=== PATIENT | female | born 1945 | race Caucasian/White ===

== ENCOUNTER → 2020-10-29 | Outpatient (CLI) | payer MEDICARE, BC ==
[2020-10-29 11:19] LABS: HEMOGLOBIN 12.9 gm/dl (12.3-15.3); RED BLOOD COUNT 4.26 M/UL (4.00-5.10); WHITE BLOOD COUNT 7.6 K/UL (4.5-11.0)
[2020-10-29 11:37] LABS: BUN/CREATININE RATIO 20 (0-10)
== END ==
LOC: EDSTATUS 09:30 → OPSV2 09:30
PROVIDERS: Orthopaedic Surgery
DX: Z01.818 Encounter for other preprocedural examination (principal); M17.11 Unilateral primary osteoarthritis, right knee; I45.10 Unspecified right bundle-branch block; I49.8 Other specified cardiac arrhythmias
CPT/HCPCS: 36415; 80048; 81001; 85025; 87081; 87086; 93005

== ENCOUNTER → 2021-11-26 | Outpatient (CLI) | payer MEDICARE, BC ==
[~2021-11-26] MED LIST: CYCLOBENZAPRINE10 MG PO; HYDROCHLOROTHIA25 MG PO; MELATONIN PO; NORVASC5 MG PO; TRIAMTERENE50 MG PO
[2021-11-26 12:40] LABS: HEMOGLOBIN 13.2 gm/dl (12.3-15.3); RED BLOOD COUNT 4.34 M/UL (4.00-5.10); WHITE BLOOD COUNT 6.9 K/UL (4.5-11.0)
== END ==
LOC: OPSV2 11:30 → EDSTATUS 11:30 → OPSV2 11:32
PROVIDERS: Orthopaedic Surgery
DX: Z01.818 Encounter for other preprocedural examination (principal); M17.11 Unilateral primary osteoarthritis, right knee
CPT/HCPCS: 80048; 85027; 93005

== ENCOUNTER 2021-12-10 05:48 | Day surgery (SDC) | payer MEDICARE, BC ==
[~2021-12-10] VITALS: Ht 157.5 cm; Wt 94.8 kg
[2021-12-10 06:54] LABS: BUN/CREATININE RATIO 23 (0-10)
[2021-12-10] MEDS ORDERED: ELAVIL 50 MG TA50 MG PO (07:36)
[2021-12-10] MEDS ORDERED: ZOFRAN 4 MG TAB4 MG PO (09:45)
[2021-12-10] MEDS ORDERED: ASPIRIN EC81 MG PO (09:45)
[2021-12-10] MEDS ORDERED: ENDOCET 7.5-321 EACH PO (09:45)
[2021-12-10] MEDS ORDERED: CYCLOBENZAPRINE10 MG PO (09:45)
[2021-12-11 10:54] LABS: HEMOGLOBIN 11.4 gm/dl (12.3-15.3); RED BLOOD COUNT 3.72 M/UL (4.00-5.10)
[2021-12-11] MEDS ORDERED: HYDROCODON-ACE1 EAC2 PO (11:31)
[2021-12-11] MEDS ORDERED: LOPRESSOR 25 MG25 MG PO (11:42)
[2021-12-11] MEDS ORDERED: HYDROCHLOROTHIA25 MG PO (11:44)
== END 2021-12-11 14:26 | disposition home health service (06) ==
LOC: OR 05:48 → EDSTATUS 11:00 → M/S 14:17 → OR 12-11 14:26
PROVIDERS: Orthopaedic Surgery
DX: M17.11 Unilateral primary osteoarthritis, right knee (principal); I12.9 Hypertensive chronic kidney disease with stage 1 through stage 4 chronic kidney disease, or unspecified chronic kidney disease; N18.9 Chronic kidney disease, unspecified; E03.9 Hypothyroidism, unspecified; Z86.16 Personal history of COVID-19; Z98.890 Other specified postprocedural states; Z94.84 Stem cells transplant status; Z88.8 Allergy status to other drugs, medicaments and biological substances; Z79.82 Long term (current) use of aspirin; Z20.822 Contact with and (suspected) exposure to COVID-19; Z87.891 Personal history of nicotine dependence; Z88.1 Allergy status to other antibiotic agents
CPT/HCPCS: 36415; 73560; 80048; 85027; 97110-GP-CQ; 97116-GP-CQ; 97161; 97166; 97530; 97535; C1713; C1776; J0171; J0690; J1100; J1170; J1644; J2370; J2405; J2704; J2795; J3010; J3370; J7030; J7120